=== PATIENT | female | born 1985 | race Caucasian/White ===

== ENCOUNTER 2018-09-10 12:08 | Inpatient (IN) | payer OTHER ==
[~2018-09-10] VITALS: Ht 165.1 cm; Wt 52.1 kg
[2018-09-10] MEDS ORDERED: SOD CHLORIDE 0.9% 0 ML IV ONE (13:08)
--- NOTE | 2018-09-10 14:58 | ERD ---
ER Documentation Chief Complaint Chief Complaint sent by clinic h/h 4.0/19.2 as 6.7.19, hemoglobin 3.0 today HPI 33-year-old female sent by her primary care doctor after she was noted to have a hemoglobin of 4 on recent blood test done on August 30. Patient states that she went for a routine physical exam and her anemia was discovered at that time. She states that she has been having 3 years of heavier periods that last about 6 to 7 days. Her periods are regular. She is not currently on control. She does have a history of anemia but has never required a transfusion. She is denying any shortness of breath, headache, dizziness, chest pain, decreased exercise tolerance, or fatigue. No prior pregnancies. Patient is currently on her menstrual period, however it is light ROS All systems reviewed and are negative except as per history of present illness. Medications Home Meds No Active Prescriptions or Reported Meds Allergies Allergies: Coded Allergies: No Known Allergy (Unverified , 09/10/18) PMhx/Soc Medical and Surgical Hx: pt denies Medical Hx, pt denies Surgical Hx Hx Alcohol Use: No Hx Substance Use: No Hx Tobacco Use: No Smoking Status: Never smoker FmHx Family History: No diabetes Physical Exam Vitals Vital Signs Date Temp Pulse Resp B/P (MAP) Pulse Ox O2 O2 Flow FiO2 Time Delivery Rate 09/10/18 97.7 102 18 117/58 100 12:27 (77) Physical Exam Const: No acute distress Head: Atraumatic Eyes: Pale conjunctiva ENT: Normal External Ears, Nose and Mouth. Neck: Full range of motion. No meningismus. Resp: Clear to auscultation bilaterally Cardio: Tachycardic with regular rhythm, no murmurs. 2+ distal pulses in all 4 extremities Abd: Soft, non tender, non distended. Normal bowel sounds Skin: No petechiae or rashes Back: No midline or flank tenderness Ext: No cyanosis, or edema Neur: Awake and alert Psych: Normal Mood and Affect Result Diagram: 09/10/18 1256 09/10/18 1256 Results 24 hrs Laboratory Tests Test 09/10/18 12:56 White Blood Count 3.5 10^3/ul Red Blood Count 3.15 10^6/ul Hemoglobin 3.9 g/dl Hematocrit 18.5 % Mean Corpuscular Volume 58.7 fl Mean Corpuscular Hemoglobin 12.4 pg Mean Corpuscular Hemoglobin Concent 21.1 g/dl Red Cell Distribution Width 21.8 % Platelet Count 399 10^3/UL Mean Platelet Volume 9.5 fl Immature Granulocytes % 0.300 % Neutrophils % 41.3 % Segmented Neutrophils % (Manual) 49 % Band Neutrophils % (Manual) 4 % Lymphocytes % 42.1 % Lymphocytes % (Manual) 29 % Monocytes % 14.9 % Monocytes % (Manual) 12 % Eosinophils % 1.1 % Eosinophils % (Manual) 4 % Basophils % 0.3 % Basophils % (Manual) 1 % Myelocytes % (Manual) 1 % Nucleated Red Blood Cells % 1 % Immature Granulocytes # 0.010 10^3/ul Neutrophils # 1.4 10^3/ul Neutrophils # (Manual) 1.7 10^3/ul Band Neutrophils # 0.1 10^3/ul Lymphocytes (Manual) 1.0 10^3/ul Lymphocytes # 1.5 10^3/ul Monocytes # 0.5 10^3/ul Monocytes # (Manual) 0.4 10^3/ul Eosinophils # 0.0 10^3/ul Basophils # 0.0 10^3/ul Basophils # (Manual) 0.0 10^3/ul Myelocytes # 0.0 10^3/ul Nucleated Red Blood Cells # 0.0 10^3/ul Pathologist Review (Hematology) YES Platelet Estimate NORMAL Polychromasia 3+ Hypochromasia 3+ Poikilocytosis 2+ Anisocytosis 3+ Microcytosis 3+ Ovalocytes 2+ Rouleau 1+ Prothrombin Time 12.2 Sec Prothrombin Time Ratio 1.0 INR International Normalized Ratio 0.89 Activated Partial Thromboplast Time 31.1 Sec Sodium Level 141 mmol/L Potassium Level 3.9 mmol/L Chloride Level 108 mmol/L Carbon Dioxide Level 23 mmol/L Anion Gap 10 Blood Urea Nitrogen 12 mg/dl Creatinine 0.71 mg/dl Est Glomerular Filtrat Rate mL/min > 60 mL/min Glucose Level 89 mg/dl Calcium Level 9.1 mg/dl Total Bilirubin 0.5 mg/dl Direct Bilirubin 0.00 mg/dl Indirect Bilirubin 0.5 mg/dl Aspartate Amino Transf (AST/SGOT) 21 IU/L Alanine Aminotransferase (ALT/SGPT) 21 IU/L Alkaline Phosphatase 54 IU/L Total Protein 7.7 g/dl Albumin 4.2 g/dl Globulin 3.50 g/dl Albumin/Globulin Ratio 1.20 Current Medications Medications Dose Sig/Naga Start Time Status Last (Trade) Ordered Route PRN Stop Time Admin Dose Reason Admin Sodium 0 ml @ 0 Q0M ONCE 09/10/18 DC Chloride mls/hr IV 13:08 09/10/18 13:09 Procedures/MDM EMERGENT LABS AND DIAGNOSTIC STUDIES: Lab Results above were reviewed and interpreted by me. CBC: Mild leukopenia. severe anemia, microcytic CMP: No evidence of clinically significant electrolyte abnormality, acidosis, renal failure, hypoglycemia, liver disease, or biliary obstruction Coagulation studies normal, no evidence of coagulopathy Initial Nursing notes reviewed. Previous Medical Records requested via the Electronic Health Record. EMERGENCY DEPARTMENT COURSE / MEDICAL DECISION MAKING: Patient is presenting with recent blood tests showing severe anemia. She is not symptomatic at this time. She is however tachycardic, likely secondary to anemia. No evidence of severe hemorrhage on exam. She is currently on her menstruation but it is light per the patient. Because of her anemia is likely chronic blood loss from her heavy periods over the past few years. At this time her hemoglobin is severely low and she will require a blood transfusion. 2 units of PRBCs were ordered. Further work-up and management will be deferred to the inpatient team. Critical Care Management of Anemia: Time: 35 minutes Treatments/Evaluations: Close monitoring and management of bleeding sources while maintaining tight balance of fluid. With judicious assessment of anemia, coagulopathy and thrombocytopenia, while considering correction with blood products and medical therapy. Accepting Care Team: Current data and ongoing care discussed. Time: Time of admission Primary Provider: Dr. Brush Departure Diagnosis: Primary Impression: Severe anemia Additional Impression: Heavy menses Menorrahagia type: with regular cycle Qualified Codes: N92.0 - Excessive and frequent menstruation with regular cycle Condition: RISHABH Nuno MD Sep 10, 2018 14:58
--- NOTE | 2018-09-10 15:46 | QN ---
Documentation Comment pt seen and examined ANASTASIA ALEXANDRE MD Sep 10, 2018 15:45
[2018-09-10] MEDS ORDERED: NACL 0.9% 3 ML SYG IV SCH (16:00)
[2018-09-10] MEDS ORDERED: DOCUSATE SODIUM 100 MG CAP PO PRN (16:00)
[2018-09-10] MEDS ORDERED: ACETAMINOPHEN 325 MG TAB PO PRN (16:00)
[2018-09-10] MEDS ORDERED: ONDANSETRON 4 MG INJ IV PRN (16:00)
[2018-09-11] VITALS (11 sets, daily range): BP systolic 110–141; BP diastolic 64–88; PULSE 57–80; RESP 16–18; Ht 165.1 cm; Wt 52.1 kg
[2018-09-11] MEDS: PANTOPRAZOLE (EC) 40 MG TAB PO SCH (06:00)
--- NOTE | 2018-09-11 09:46 | HP ---
DATE OF ADMISSION: 09/10/2018 REASON FOR ADMISSION: Anemia. HISTORY OF PRESENT ILLNESS: This is a 33-year-old female with no known past medical history who was sent to her from her primary care's office due to abnormal labs. According to the patient, she has b een having heavy periods for the last 2 years. Her periods have been usually 5 to 6 days and she has to use like 5 to 6 pads and tampons per day. She has been noticing this for the last 2 years. She went to her primary care doctor for a regular Pap smear and had blood test done and was told that her hemoglobin was and was told her to come into ER for further evaluation. The patient denies an y hematemesis, any melena, any bright red blood per rectum. Denies any history of blood transfusions before. The patient is currently also on menstrual period, which is light. On admission, vital sig ns showed a temperature 97.7, pulse 102, respirations 18, blood pressure 117/58, saturating 100%. La bs showed white count of 3.5, hemoglobin 3.9, platelet count 399, BUN of 12, creatinine 0.7, beta hCG was negative. INR was 0.89 and the patient was receiving 2 units of blood and was admitted for furt her management. The patient denied any chest pain, any shortness of breath, any fatigue, any dyspnea . PAST MEDICAL HISTORY: None. ALLERGIES: NONE. PAST SURGICAL HISTORY: None. MEDICATIONS TAKING AT HOME: None. FAMILY HISTORY: Noncontributory. 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 REVIEW OF SYSTEMS: The patient denies any chest pain, any shortness of breath, any abdominal pain, n ausea, vomiting, diarrhea. The patient has a history of heavy menstrual periods. Denies any hematem esis, any melena, any bright red blood per rectum. PHYSICAL EXAMINATION: VITAL SIGNS: Currently, temperature 97.7, pulse 102, respirations 18, blood pressure 117/58, saturat ing 100%. GENERAL: Patient is awake, alert, oriented. HEART: Tachycardic. LUNGS: Clear to auscultate bilaterally. ABDOMEN: Soft, nontender, nondistended, positive normoactive bowel sounds. EXTREMITIES: No clubbing, cyanosis, or edema. NEUROLOGIC: Awake, alert, oriented. LABORATORY DATA: White count 3.5, hemoglobin 3.9, platelet count 399, BUN of 12, creatinine 0.71. L FTs within normal limit. Albumin 4.2. INR of 0.81. ASSESSMENT: This is a 33-year-old female with: 1. Anemia with a low MCV, likely secondary to iron deficiency due to her menstrual period. 2. Mild leukopenia. 3. Severe anemia requiring blood transfusion. 4. Tachycardia, likely secondary to #1. PLAN: At this period of time, the patient will be admitted to telemetry floor. The patient will rec eive 4 units of blood. We will also check for iron panel. The patient will also require IV iron. W e will order iron studies, ferritin, B12, folate, haptoglobin, LDH, reticulocyte count and erythropoi etin level. We will also call hematology consultation. We will also get a pelvic ultrasound. Rest of the treatment will depend on the patient on hospitalization course. Dictated By: ANASTASIA WORKMAN/PASCALE Conf#: [id number] DID#: [id number]
[2018-09-11] MEDS: SOD FERRIC GLUC COMPLX 125 MG in SOD CHLORIDE 0.9% 100 ML IVPB SCH ×2 (13:00→14:24)
--- NOTE | 2018-09-11 13:47 | PN ---
Date/Time of Note Date/Time of Note DATE: 09/11/18 TIME: 13:42 Assessment/Plan VTE Prophylaxis Risk score (from Ns)>0 risk: 0 SCD applied (from Ns): Yes Pharmacological prophylaxis: NA/contraindicated Pharm contraindication: low risk/ambulating Lines/Catheters IV [facility]from [facility] Saline Lock Assessment/Plan Assessment/Plan 33-year-old female with: 1. Anemia with a low MCV, likely secondary to iron deficiency due to her menstrual period. 2. Mild leukopenia. 3. Severe anemia requiring blood transfusion. 4. Tachycardia, likely secondary to #1.resolved # ? pedunclated fibroid Plan -Globin responded appropriately to 8.6 today -Low iron high TIBC, reticulocyte count is also low? Bone marrow suppression?? -Will check with heme -abd us neg -Pelvic ultrasound shows pedunculated fibroid that could be source of bleeding, will need Front Attendant follow-up as an outpatient - transfer med surg Result Diagram: 09/11/18 0616 09/11/18 0616 Results 24hrs Laboratory Tests Test 09/10/18 15:11 09/10/18 18:14 09/11/18 06:16 09/11/18 07:17 POC Beta HCG, NEGATIVE Qualitative Absolute 0.006 L Reticulocyte Count Percent 0.2 L Reticulocyte Count White Blood Count 4.7 #L Red Blood Count 4.27 # Hemoglobin 8.6 #L Hematocrit 30.4 #L Mean Corpuscular 71.2 #L Volume Mean Corpuscular 20.1 #L Hemoglobin Mean Corpuscular 28.3 #L Hemoglobin Concen t Red Cell Distribution Width Platelet Count 335 Mean Platelet 10.4 Volume Immature 0.400 Granulocytes % Neutrophils % 37.4 L Lymphocytes % 46.6 Monocytes % 12.6 H Eosinophils % 1.9 Basophils % 1.1 Nucleated Red 1.3 H Blood Cells % Immature 0.020 Granulocytes # Neutrophils # 1.8 Lymphocytes # 2.2 Monocytes # 0.6 Eosinophils # 0.1 Basophils # 0.1 Nucleated Red 0.1 H Blood Cells # Sodium Level 142 Potassium Level 4.1 Chloride Level 110 Carbon Dioxide 24 Level Anion Gap 8 Blood Urea 10 Nitrogen Creatinine 0.78 Est Glomerular > 60 Filtrat Rate mL/min Glucose Level 83 Calcium Level 9.1 Phosphorus Level 4.1 Magnesium Level 1.9 Lab Scanned BLOOD TRANSFUSIO Report N Subjective 24 Hr Interval Summary Free Text/Dictation Hemoglobin 8.6 today after 4 units of blood She feels better today Exam/Review of Systems Exam Vitals Vital Signs Date Temp Pulse Resp B/P (MAP) Pulse Ox O2 O2 Flow FiO2 Time Delivery Rate 09/11/18 97.9 67 18 125/71 100 Room Air 11:30 (89) Intake and Output 09/10/18 09/10/18 09/11/18 1414:59 22:59 06:59 IntakeIntake Total 300 ml BalanceBalance 300 ml Exam GENERAL: Patient is awake, alert, oriented. HEART: regular LUNGS: Clear to auscultate bilaterally. ABDOMEN: Soft, nontender, nondistended, positive normoactive bowel sounds. EXTREMITIES: No clubbing, cyanosis, or edema. NEUROLOGIC: Awake, alert, oriented. Results Results 24hrs Laboratory Tests Test 09/10/18 15:11 09/10/18 18:14 09/11/18 06:16 09/11/18 07:17 POC Beta HCG, NEGATIVE Qualitative Absolute 0.006 L Reticulocyte Count Percent 0.2 L Reticulocyte Count White Blood Count 4.7 #L Red Blood Count 4.27 # Hemoglobin 8.6 #L Hematocrit 30.4 #L Mean Corpuscular 71.2 #L Volume Mean Corpuscular 20.1 #L Hemoglobin Mean Corpuscular 28.3 #L Hemoglobin Concen t Red Cell Distribution Width Platelet Count 335 Mean Platelet 10.4 Volume Immature 0.400 Granulocytes % Neutrophils % 37.4 L Lymphocytes % 46.6 Monocytes % 12.6 H Eosinophils % 1.9 Basophils % 1.1 Nucleated Red 1.3 H Blood Cells % Immature 0.020 Granulocytes # Neutrophils # 1.8 Lymphocytes # 2.2 Monocytes # 0.6 Eosinophils # 0.1 Basophils # 0.1 Nucleated Red 0.1 H Blood Cells # Sodium Level 142 Potassium Level 4.1 Chloride Level 110 Carbon Dioxide 24 Level Anion Gap 8 Blood Urea 10 Nitrogen Creatinine 0.78 Est Glomerular > 60 Filtrat Rate mL/min Glucose Level 83 Calcium Level 9.1 Phosphorus Level 4.1 Magnesium Level 1.9 Lab Scanned BLOOD TRANSFUSIO Report N Medications Medication Current Medications IV Flush (NS 3 ml) 3 ml PER PROTOCOL IV ; Start 09/10/18 at 16:00 Ondansetron HCl (Zofran Inj) 4 mg Q6H PRN IV NAUSEA/VOMITING; Start 09/10/18 at 16:00 Acetaminophen (Tylenol Tab) 650 mg Q6H PRN PO .PAIN 1-3 OR TEMP; Start 09/10/18 at 16:00 Docusate Sodium (Colace) 100 mg Q12H PRN PO .CONSTIPATION; Start 09/10/18 at 16:00 Pantoprazole (Protonix Tab) 40 mg DAILY@06 PO ; Start 09/11/18 at 06:00 Ferric Sodium Gluconate Complex 125 mg/Sodium Chloride 110 ml @ 110 mls/hr DAILY@1300 IVPB ; Start 09/11/18 at 13:00; Stop 09/15/18 at 13:59 ANASTASIA ALEXANDRE MD Sep 11, 2018 13:46
--- NOTE | 2018-09-11 14:29 | CONS ---
Assessment/Plan Assessment/Plan Hospital Course (Demo Recall) #Iron deficiency anemia -2/2 menorrhagia -evidenced by ferritin 1. -pt has since received 4 units of PRBCs and 1 dose of IV iron -pt will need to continue IV iron in the office. 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 Pt does endorse menorrhagia for > 2 years with periods lasting 5 to 6 days and she has to use like 5 to 6 pads and tampons per day. On admission pt was found with a Hg 3.9, iron < 10 and ferritin 1.6. Pt has since received 4 units of PRBCs. She was also noted to have a low retic count and normal LDH. Patient feels much better since the blood transfusion. Constitutional: poor po Eyes: no complaints ENT: no complaints Respiratory: shortness of breath Cardiovascular: lightheadedness, palpitations Gastrointestinal: no complaints Genitourinary: no complaints Musculoskeletal: no complaints Skin: no complaints Neurologic: no complaints Past Medical History none Home Meds No Active Prescriptions or Reported Meds Medications Current Medications IV Flush (NS 3 ml) 3 ml PER PROTOCOL IV ; Start 09/10/18 at 16:00 Ondansetron HCl (Zofran Inj) 4 mg Q6H PRN IV NAUSEA/VOMITING; Start 09/10/18 at 16:00 Acetaminophen (Tylenol Tab) 650 mg Q6H PRN PO .PAIN 1-3 OR TEMP; Start 09/10/18 at 16:00 Docusate Sodium (Colace) 100 mg Q12H PRN PO .CONSTIPATION; Start 09/10/18 at 16:00 Pantoprazole (Protonix Tab) 40 mg DAILY@06 PO ; Start 09/11/18 at 06:00 Ferric Sodium Gluconate Complex 125 mg/Sodium Chloride 110 ml @ 110 mls/hr DAILY@1300 IVPB ; Start 09/11/18 at 13:00; Stop 09/15/18 at 13:59 Allergies: Coded Allergies: No Known Allergy (Unverified , 09/10/18) Past Surgical History Past Surgical Hx: no surgical history Family History Significant Family History: no pertinent family hx Social History Alcohol Use: none Smoking Status: Never smoker Drug Use: none Exam/Review of Systems Exam Vitals Vital Signs Date Temp Pulse Resp B/P (MAP) Pulse Ox O2 O2 Flow FiO2 Time Delivery Rate 09/11/18 70 12:00 09/11/18 97.9 18 125/71 100 Room Air 11:30 (89) Intake and Output 09/10/18 09/10/18 09/11/18 1515:00 23:00 07:00 IntakeIntake Total 300 ml BalanceBalance 300 ml Constitutional: alert, oriented Psych: no complaints Head: normocephalic Eyes: nl conjunctiva ENMT: nl external ears & nose Neck: supple Respiratory: clear to auscultation Cardiovascular: regular rate and rhythm Gastrointestinal: soft Musculoskeletal: nl extremities to inspection Extremities: normal pulses Results Result Diagram: 09/11/18 0616 09/11/18 0616 Results 24hrs Laboratory Tests Test 09/10/18 15:11 09/10/18 18:14 09/11/18 06:16 09/11/18 07:17 POC Beta HCG, NEGATIVE Qualitative Absolute 0.006 L Reticulocyte Count Percent 0.2 L Reticulocyte Count White Blood Count 4.7 #L Red Blood Count 4.27 # Hemoglobin 8.6 #L Hematocrit 30.4 #L Mean Corpuscular 71.2 #L Volume Mean Corpuscular 20.1 #L Hemoglobin Mean Corpuscular 28.3 #L Hemoglobin Concen t Red Cell Distribution Width Platelet Count 335 Mean Platelet 10.4 Volume Immature 0.400 Granulocytes % Neutrophils % 37.4 L Lymphocytes % 46.6 Monocytes % 12.6 H Eosinophils % 1.9 Basophils % 1.1 Nucleated Red 1.3 H Blood Cells % Immature 0.020 Granulocytes # Neutrophils # 1.8 Lymphocytes # 2.2 Monocytes # 0.6 Eosinophils # 0.1 Basophils # 0.1 Nucleated Red 0.1 H Blood Cells # Sodium Level 142 Potassium Level 4.1 Chloride Level 110 Carbon Dioxide 24 Level Anion Gap 8 Blood Urea 10 Nitrogen Creatinine 0.78 Est Glomerular > 60 Filtrat Rate mL/min Glucose Level 83 Calcium Level 9.1 Phosphorus Level 4.1 Magnesium Level 1.9 Lab Scanned BLOOD TRANSFUSIO Report N Medications Medication Current Medications IV Flush (NS 3 ml) 3 ml PER PROTOCOL IV ; Start 09/10/18 at 16:00 Ondansetron HCl (Zofran Inj) 4 mg Q6H PRN IV NAUSEA/VOMITING; Start 09/10/18 at 16:00 Acetaminophen (Tylenol Tab) 650 mg Q6H PRN PO .PAIN 1-3 OR TEMP; Start 09/10/18 at 16:00 Docusate Sodium (Colace) 100 mg Q12H PRN PO .CONSTIPATION; Start 09/10/18 at 16:00 Pantoprazole (Protonix Tab) 40 mg DAILY@06 PO ; Start 09/11/18 at 06:00 Ferric Sodium Gluconate Complex 125 mg/Sodium Chloride 110 ml @ 110 mls/hr DAILY@1300 IVPB ; Start 09/11/18 at 13:00; Stop 09/15/18 at 13:59 TIA SINGH M.D. Sep 11, 2018 14:29
[2018-09-12 02:10] VITALS: BP 123/69; PULSE 69; RESP 18
[2018-09-12] MEDS: PANTOPRAZOLE (EC) 40 MG TAB PO SCH (06:05)
[2018-09-12 08:24] VITALS: BP 121/79; PULSE 63; RESP 20
--- NOTE | 2018-09-12 10:04 | PDOCDIS ---
Discharge Instructions DIAGNOSIS Discharge Diagnosis fe def anemia CONDITION [id number] Patient Condition: Ammer4b Fair HOME CARE INSTRUCTIONS: [id number] Diet Instructions: [id number] Regular ACTIVITY: [id number] Activity Restrictions: [id number] Slowly Increase Activity Rest between Activity Avoid heavy lifting FOLLOW UP/APPOINTMENTS Follow-up Plan fu Pcp in 1 -[address] Johnson in 1-2 weeks for iv fe fu gynaecology for fibroids in 1-2 weeks ANASTASIA ALEXANDRE MD Sep 12, 2018 10:04
[2018-09-12] MEDS ORDERED: FER325 PO (10:05)
[2018-09-12] MEDS ORDERED: DOCU-144 PO (10:05)
--- NOTE | 2018-09-12 11:20 | CONS ---
Assessment/Plan Assessment/Plan Hospital Course (Demo Recall) #Iron deficiency anemia -2/2 menorrhagia -evidenced by ferritin 1. -pt has since received 4 units of PRBCs and 1 dose of IV iron -will given a dose of IV iron today prior to discharge -pt will need to continue IV iron in the office. 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 pt feels better with blood transfusion. started IV iron Exam/Review of Systems Exam Vitals Vital Signs Date Temp Pulse Resp B/P (MAP) Pulse Ox O2 O2 Flow FiO2 Time Delivery Rate 09/12/18 63 20 121/79 98 08:24 (93) 09/12/18 98.3 02:10 09/11/18 Room Air 17:56 Intake and Output 09/11/18 09/11/18 09/12/18 1515:00 23:00 07:00 IntakeIntake Total 200 ml 960 ml BalanceBalance 200 ml 960 ml Constitutional: alert, oriented Psych: no complaints Head: normocephalic Eyes: nl conjunctiva ENMT: nl external ears & nose Neck: supple Respiratory: clear to auscultation Cardiovascular: regular rate and rhythm Gastrointestinal: soft Musculoskeletal: nl extremities to inspection Results Result Diagram: 09/12/18 0525 09/11/18 0616 Results 24hrs Laboratory Tests Test 09/12/18 05:25 09/12/18 05:53 White Blood Count 4.7 L Red Blood Count 4.56 Hemoglobin 9.0 L Hematocrit 32.6 L Mean Corpuscular Volume 71.5 L Mean Corpuscular Hemoglobin 19.7 L Mean Corpuscular Hemoglobin Concent 27.6 L Red Cell Distribution Width Platelet Count 330 Mean Platelet Volume 10.0 Immature Granulocytes % 0.200 Neutrophils % 38.3 L Lymphocytes % 44.6 Monocytes % 11.8 H Eosinophils % 4.0 Basophils % 1.1 Nucleated Red Blood Cells % 1.1 H Immature Granulocytes # 0.010 Neutrophils # 1.8 Lymphocytes # 2.1 Monocytes # 0.6 Eosinophils # 0.2 Basophils # 0.1 Nucleated Red Blood Cells # 0.1 H Lab Scanned Report BLOOD TRANSFUSION Medications Medication Current Medications IV Flush (NS 3 ml) 3 ml PER PROTOCOL IV ; Start 09/10/18 at 16:00 Ondansetron HCl (Zofran Inj) 4 mg Q6H PRN IV NAUSEA/VOMITING; Start 09/10/18 at 16:00 Acetaminophen (Tylenol Tab) 650 mg Q6H PRN PO .PAIN 1-3 OR TEMP; Start 09/10/18 at 16:00 Docusate Sodium (Colace) 100 mg Q12H PRN PO .CONSTIPATION; Start 09/10/18 at 16:00 Pantoprazole (Protonix Tab) 40 mg DAILY@06 PO Last administered on 09/12/18at 0 6:05; Admin Dose 40 MG; Start 09/11/18 at 06:00 Ferric Sodium Gluconate Complex 125 mg/Sodium Chloride 110 ml @ 110 mls/hr DAILY@1300 IVPB Last administered on 09/11/18at 14:24; Admin Dose 110 MLS/HR; Start 09/11/18 at 13:00; Stop 09/15/18 at 13:59 TIA SINGH M.D. Sep 12, 2018 11:20
[2018-09-12] MEDS: SOD FERRIC GLUC COMPLX 125 MG in SOD CHLORIDE 0.9% 100 ML IVPB SCH (12:08)
--- NOTE | 2018-09-13 06:41 | DS ---
DATE OF ADMISSION: 09/10/2018 DATE OF DISCHARGE: 09/12/2018 HISTORY OF PRESENT ILLNESS AND HOSPITAL COURSE: A 33-year-old female with known past surgical histor y presented from PCP's office due to abnormal mass. According to the patient, she was having heavy p eriods for the last 2 years. Her periods have been usually 5 to 6 range using 5-6 tampons per day. She has been noticing this for 2 years. She went for a regular doctor for Pap smear and her blood te st showed hemoglobin was poor and told to come to ER for further evaluation. Denied any hematemesis, melena, bright red blood per rectum, denied any blood transfusions before. On admission, vital sign s were stable. Labs showed hemoglobin 3.9, white count 3.5, platelet count 399. Beta hCG was negati ve. Patient had a low MCV, macrocytic anemia. The patient had retic count which was low. LDH withi n normal limit. Vitamin B12, folic acid within normal limit. Iron was less than 20, TIBC 526, yasmine tin 1.6. The patient was started on IV iron. The patient received total of 4 units of blood. Hemog lobin came up to 9.0. The patient was seen by Dr. Charles. Patient was feeling much better. The margo ent will be followed by Dr. Cahrles in the office for IV iron and the patient also had abnormal ultraso und which was negative. Pelvic ultrasound was done that showed heterogeneous uterus, a suggestion of 7.7 cm fundal fibroid. The patient will need to follow up with the gynecology as an outpatient. FINAL DISCHARGE DIAGNOSES: 1. Iron deficiency anemia, likely secondary to menorrhagia, likely secondary to fibroid, status post 4 units of blood, one dose of IV iron. 2. Menorrhagia likely secondary to fibroid. 3. Acute blood loss anemia, status post 4 units of blood. DISCHARGE CONDITION: Stable. DISCHARGE DIET: Regular. DISCHARGE MEDICATIONS: 1. Iron sulfate 325 p.o. t.i.d. 2. Colace p.r.n. constipation. The patient was instructed to follow up with PCP in 1 to 2 weeks, hematology in 1 to 2 weeks and also gynecology in 1 to 2 weeks. The patient was instructed to return to the ER if any chest pain, short ness of breath. Dictated By: ANASTASIA WORKMAN/PASCALE Conf#: [id number] DID#: [id number]
== END 2018-09-12 14:15 | disposition home or self-care (01) | DRG 812 ==
LOC: E/R 12:08 → TEL 14:39 → CANRESERV 14:49 → EDBEDREQSVC 16:22 → PP2 23:52
PROVIDERS: ADMIT Internal Medicine; ATTEND Internal Medicine
PROC: 30233N1 Transfusion of Nonautologous Red Blood Cells into Peripheral Vein, Percutaneous Approach (ICD-10-PCS; 2018-09-10)
PROC: 30233N1 Transfusion of Nonautologous Red Blood Cells into Peripheral Vein, Percutaneous Approach (ICD-10-PCS; principal; 2018-09-11)
DX: D62 Acute posthemorrhagic anemia (principal); D25.9 Leiomyoma of uterus, unspecified; N92.0 Excessive and frequent menstruation with regular cycle; D50.9 Iron deficiency anemia, unspecified; D72.819 Decreased white blood cell count, unspecified; R00.0 Tachycardia, unspecified
CPT/HCPCS: 36415; 36430; 76700; 76856; 80048; 80053; 81025; 82607; 82668; 82728; 82746; 83010; 83540; 83615; 83735; 84100; 85025; 85045; 85610; 85730; 86850; 86900; 86901; 86920; J2916; J7040; P9016